=== PATIENT | male | born 1945 | race Hispanic/Latino ===

== ENCOUNTER 2020-09-24 11:50 | Outpatient (CLI) | payer MEDICARE, SELFPAY ==
--- NOTE | ~2020-09-24 | MR_ITS ---
. EXAMINATION: MR lumbar spine wo con DATE: 09/24/2020 12:24 INDICATION: Lumbar radiculopathy. TECHNIQUE: Magnetic resonance imaging (MRI) of the lumbar spine was performed without intravenous con trast. Sequences included sagittal T2-weighted FSE, sagittal T2-weighted FS FSE, sagittal T1-weighted FSE, and axial T2-weighted FSE. COMPARISON: None FINDINGS: There is 9 degrees levocurvature of lumbar spine. There is 3 mm anterolisthesis of L5 on S1 . There is mild chronic anterior wedging of T12 and L1 vertebral bodies. There is mildly decreased di sc height at L1-L2. There is ligamentum flavum hypertrophy at the disc levels from L3-L4 through L5-S 1. The distal spinal cord signal intensity is normal. The conus medullaris is at L1-L2. The following disc levels are specifically discussed: L1-L2: The disc is bulging. There is mild bilateral facet joint osteoarthritis. There is mild bilater al neural foraminal stenosis. There is mild central canal stenosis. L2-L3: The disc is bulging. There is severe right and moderate left facet joint osteoarthritis. There is mild bilateral neural foraminal stenosis. There is mild central canal stenosis. L3-L4: The disc is bulging and has an annular fissure. There is moderate right and severe left facet joint osteoarthritis. There is moderate right and mild left neural foraminal stenosis. There is no ce ntral canal stenosis. L4-L5: The disc is bulging. There is severe bilateral facet joint osteoarthritis. There is moderate b ilateral neural foraminal stenosis. There is mild central canal stenosis. L5-S1: The disc is bulging of annular fissure. There is severe bilateral facet joint osteoarthritis. There is moderate bilateral neural foraminal stenosis. There is mild central canal stenosis. IMPRESSION: 1. Moderate lumbar spondylosis. Reviewed, dictated and finalized at location A. CHEMIST
== END 2020-09-24 11:51 ==
PROVIDERS: Visit Provider Nurse Practitioner Adult Health
DX: M47.26 Other spondylosis with radiculopathy, lumbar region (principal)
CPT/HCPCS: 72148

== ENCOUNTER 2022-02-28 07:34 | Emergency (ER) | payer MEDICARE, SELFPAY ==
[2022-02-28] VITALS (7 sets, daily range): BP systolic 177–195; BP diastolic 81–94; PULSE 66–86; RESP 16; TEMP 36.7; O2SAT 99–100
--- NOTE | ~2022-02-28 | CT_ITS ---
EXAMINATION: CT abdomen pelvis w con DATE: 02/28/2022 09:40 INDICATION: Abdominal pain TECHNIQUE: Computed tomography (CT) of the abdomen and pelvis was performed with 100 mL Omnipaque-300 intravenous contrast. Automated exposure control and iterative reconstruction technique were employe d. The dose-length product was 957.94 mGy-cm. COMPARISON: None FINDINGS: Tiny calcified nodule at the right lung base consistent with old granulomatous disease. Heart size is normal. No pericardial or pleural effusion. Small sliding-type hiatal hernia. Small focus of interme diate attenuation within the fluid filling the intrathoracic portion of the stomach which could repre sent either ingested material, a small polyp or potentially focus of active contrast extravasation. L iver, spleen, pancreas and bilateral kidneys are normal. 7 mm likely calcified gallstone at the neck of the normal decompressed gallbladder. No intra or extra hepatic biliary ductal dilation. 1 cm macro scopic fat attenuation left adrenal myelolipoma. There is a second 1 cm soft tissue density nodule at the right adrenal and statistically most likely to represent an adenoma. Both adrenal nodules appear to been present at the time of a thoracic spine MR dated 12/08/2017. There is mild colonic diverticul osis without adjacent inflammatory change to suggest diverticulitis. Normal appendix. There is fluid scattered throughout multiple loops of nondilated small bowel. Bladder is normal. Prostatomegaly carole uring 5.3 x 4.0 cm. Trace amount of nonspecific ascites in the pelvis. No abscess or free intraperito ruthy gas. No pathologically enlarged abdominal or pelvic lymphadenopathy. There are bridging osteophy román at multiple levels in the lower thoracic spine, consistent with diffuse idiopathic skeletal hyper ostosis (DISH). IMPRESSION: 1. Small sliding-type hiatal hernia with small focus of intermediate attenuation surrounded by fluid within the intrathoracic portion of the stomach which could represent either ingested material, a sma ll polyp or potentially small focus of gastrointestinal bleed with active contrast extravasation. Cor relate clinically and could consider endoscopy for further evaluation. 2. Diverticulosis. 3. Nonspecific fluid-filled but not frankly dilated loops of small bowel without evidence of obstruct ion in this could be related to either an ileus or gastroenteritis. 4. Cholelithiasis. 5. Trace amount of nonspecific ascites in the pelvis. Reviewed, dictated and finalized at location A. IMPRESSION: 1. Small sliding-type hiatal hernia with small focus of intermediate attenuatio n surrounded by fluid within the intrathoracic portion of the stomach which cou ld represent either ingested material, a small polyp or potentially small focus of gastrointestinal bleed with active contrast extravasation. Correlate clinic ally and could consider endoscopy for further evaluation. 2. Diverticulosis. 3. Nonspecific fluid-filled but not frankly dilated loops of small bowel withou t evidence of obstruction in this could be related to either an ileus or gastro enteritis. 4. Cholelithiasis. 5. Trace amount of nonspecific ascites in the pelvis.
[2022-02-28 07:51] LABS: Basophils Absolute Auto 0.1 K/mm3 (0.0-0.1); Basophils Percent Auto 0.4 % (0.2-1.2); Eosinophils Percent Auto 0.1 % (0-4.4); Hematocrit 47.4 % (42.0-52.0); Hemoglobin 15.8 g/dL (14.0-18.0); Immature Granulocyte Absolute 0.03 K/mm3 (0.00-0.031); Immature Granulocyte Percent A 0.2 % (0-0.5); Lymphocytes Absolute Auto 1.66 K/mm3 (0.9-3.2); Lymphocytes Percent Auto 12.3 % (18.3-44.2); Mean Corpuscular HGB Conc 33.3 g/dl (32-36); Mean Corpuscular Volume 89.9 fl (80-100); Mean Platelet Volume 9.4 fl (7.4-10.4); Monocytes Absolute Auto 0.5 K/mm3 (0.1-0.6); Monocytes Percent Auto 3.8 % (2.6-8.5); Neutrophils Absolute Auto 11.2 K/mm3 (1.3-6.7); Neutrophils Percent Auto 83.2 % (45.5-73.1); Platelet Count Result 284 k/mm3 (150-375); Red Blood Count 5.27 M/mm3 (4.6-6.20); Red Cell Distribution Width 15.1 % (11.5-14.5); White Blood Count 13.5 K/mm3 (4.5-10.0)
[2022-02-28 08:00] LABS: Alanine Aminotransferase 25 U/L (6-50); Albumin Level 4.7 g/dL (3.5-5.1); Alkaline Phosphatase 127 U/L (38-126); Anion Gap 11 mmol/L (8-16); Aspartate Amino Transferase 26 U/L (17-59); Bilirubin,Total 0.9 mg/dL (0.2-1.3); Blood Urea Nitrogen 14 mg/dL (9-20); Calcium 9.3 mg/dL (8.4-10.2); Carbon Dioxide 28 mmol/L (22-30); Chloride 102 mmol/L (98-107); Estimated CRCL calculation 53 ml/min; Estimated Glomerular Filt Rate > 60; Glucose 151 mg/dL (65-110); Lipase 86 U/L (23-300); Potassium 4.7 mmol/L (3.4-5.0); Sodium 141 mmol/L (137-145)
--- NOTE | 2022-02-28 08:04 | ED.GENADULT ---
HPI - General Adult General Chief complaint: Nausea/Vomiting/Diarrhea Stated complaint: vomiting, headache Time Seen by Provider: 02/28/22 07:53 Source: RN notes reviewed History of Present Illness HPI narrative: Patient presents emergency department from home for abdominal pain. Patient states symptoms began 2 days ago. The pain is located bilateral lower abdomen does not radiate and is been associated with numerous episodes of nausea and vomiting. Patient has had some episodes of diarrhea as well per the family the patient does report a frontal headache described as aching in nature and he denies any fevers or chills chest pain or shortness of breath denies any coughing. Patient did take Tylenol yesterday with minimal relief Related Data Allergies Allergy/AdvReac Type Severity Reaction Status Date / Time No Known Allergies Allergy Unverified 05/07/15 11:54 Review of Systems Review of Systems: Gen.: Denies fevers or chills ENT: Denies congestion Respiratory: Denies shortness of breath or cough CV: Denies chest pain or palpitations GI: See HPI denies burning, urgency, frequency or hematuria Musculoskeletal: Denies back pain or muscle pain Neuro: Reports frontal headache denies any numbness or tingling Skin: Denies rash Except as documented, all other systems reviewed and negative [facility] Past Medical History Medical History (Updated 02/28/22 @ 14:52 by Jose Solo DO) Hypertension Social History Social History (Updated 02/28/22 @ 08:06 by Jose Solo DO) Smoking status: Never smoker Exam Narrative: APPEARANCE: No acute distress, nontoxic, resting in bed HEENT: Normocephalic, atraumatic, OMM RESPIRATORY: No respiratory distress, clear to auscultation bilaterally with no rhonchi wheezing or rales CARDIOVASCULAR: RRR s murmur ABDOMINAL: Soft nondistend, tender palpation right lower quadrant and left lower quadrant no tenderness right upper quadrant left upper quadrant no rebound or guarding MUSCULOSKELETAl: Moves all extremities. No clubbing, cyanosis or edema. NEURO: Awake and alert. Following commands, speech normal, no focal deficits SKIN:: Warm, dry. Normal Color PSYCHIATRIC: Normal affect/mood Course Course Emergency Course: Following the CT read I discussed with Dr. Corley. At this time recommends NG placed with lavage if negative may be pulled and patient may be discharged NG placed clear liquid return no signs of bleeding Patient states he feeling much better able to drink in ED with no emesis Discussed with patient results of workup and diagnosis. Discussed need for follow-up with primary care, proper use of medication, and reasons to return to the emergency department. Patient understands and agrees to current treatment plan Vital Signs Vital signs: Vital Signs Temperature 98.1 F 02/28/22 07:39 Pulse Rate 86 02/28/22 07:39 Respiratory Rate 16 02/28/22 07:39 Blood Pressure 181/89 H 02/28/22 07:39 Pulse Oximetry 100 02/28/22 07:39 Oxygen Delivery Room Air 02/28/22 07:39 Temperature 98.1 F 02/28/22 07:39 Pulse Rate 80 02/28/22 14:01 Respiratory Rate 16 02/28/22 14:01 Blood Pressure 195/94 H 02/28/22 14:01 Pulse Oximetry 100 02/28/22 14:01 Oxygen Delivery Room Air 02/28/22 07:39 Medical Decision Making Vital Signs Vital Signs: Vital Signs Temperature 98.1 F 02/28/22 07:39 Pulse Rate 86 02/28/22 07:39 Respiratory Rate 16 02/28/22 07:39 Blood Pressure 181/89 H 02/28/22 07:39 Pulse Oximetry 100 02/28/22 07:39 Oxygen Delivery Room Air 02/28/22 07:39 Temperature 98.1 F 02/28/22 07:39 Pulse Rate 80 02/28/22 14:01 Respiratory Rate 16 02/28/22 14:01 Blood Pressure 195/94 H 02/28/22 14:01 Pulse Oximetry 100 02/28/22 14:01 Oxygen Delivery Room Air 02/28/22 07:39 Lab Data Result diagrams: 02/28/22 07:45 02/28/22 07:45 Labs: Lab Results 02/28/22
[2022-02-28] MEDS: ONDANSETRON INJ 4 MG/2 ML VIAL IV PUSH (08:16)
[2022-02-28] MEDS: SODIUM CHLORIDE 0.9% IV 1,000 ML 999 ML IV CONT (08:16)
[2022-02-28 08:44] LABS: SARS-CoV-2 RNA PCR Positive
[2022-02-28 10:48] LABS: Appearance Urine Clear (Clear); Bilirubin Urine Negative (Negative); Glucose Urine UA Negative (Negative); Ketones Urine Negative (Negative); Leukocyte Esterase Ur Negative LEU/UL (Negative); Nitrate Urine Negative (Negative); Protein Urine Negative (Negative); Specific Grav Ur <= 1.005 (1.001-1.035); Urobilinogen Urine 0.2 mg/dL (<2.0)
[2022-02-28 10:52] LABS: Add Urine Microscopic? YES; Blood Urine Trace-Intact (Negative); Color Urine Light Yellow (Yellow)
[2022-02-28 11:00] LABS: Mucus Urine Rare /lpf; RBC Urine 0-2 /hpf (0-2)
== END 2022-02-28 16:15 | disposition home or self-care (01) ==
PROVIDERS: Emergency Provider Emergency Medicine; PCP Family Medicine
DX: U07.1 COVID-19 (principal); R11.2 Nausea with vomiting, unspecified; I10 Essential (primary) hypertension; K80.20 Calculus of gallbladder without cholecystitis without obstruction; K57.90 Diverticulosis of intestine, part unspecified, without perforation or abscess without bleeding; R93.3 Abnormal findings on diagnostic imaging of other parts of digestive tract; K44.9 Diaphragmatic hernia without obstruction or gangrene
CPT/HCPCS: 36415; 74177; 80053; 81001; 83690; 85025; 96365; 96375; 99284; C9803; J0131; J2405; J7030; Q9967; U0003; U0005

== ENCOUNTER 2024-02-09 21:09 | Emergency (ER) | payer MEDICARE, SELFPAY ==
--- NOTE | ~2024-02-09 | CT_ITS ---
EXAMINATION: CT abdomen pelvis w con DATE: 02/09/2024 23:17 INDICATION: Abdominal pain. TECHNIQUE: Computed tomography (CT) of the abdomen and pelvis was performed with 100 mL Omnipaque 350 intravenous contrast. Automated exposure control and iterative reconstruction technique were employe d. The dose-length product was 934.32 mGy-cm. COMPARISON: CT abdomen and pelvis 02/28/2022 FINDINGS: The visualized portions of lung bases demonstrate mild atelectasis. No pleural effusion. Th e heart size is normal. No pericardial effusion. There is a small sliding hiatal hernia. The liver an d spleen are normal. There is a gallstone in the gallbladder, which is normal in size. The pancreas a nd right adrenal gland are normal. There is an 8 mm mass of fat in left adrenal gland, consistent wit h a myelolipoma. There is cortical thinning of the kidneys. The prostate is moderately enlarged. Ther e is diverticulosis of the colon without evidence of diverticulitis. There are no dilated loops of luz elena wel. The appendix is normal. There are no pathologically enlarged lymph nodes. There is no free intra peritoneal fluid. There is moderate lumbar spondylosis. There are bridging endplate osteophytes at mu ltiple levels in the thoracic spine, consistent with diffuse idiopathic skeletal hyperostosis (DISH). There is mild chronic anterior wedging of T12, L1, and L2 vertebral bodies. IMPRESSION: 1. Small sliding hiatal hernia. Reviewed, dictated and finalized at location E.
--- NOTE | ~2024-02-09 | XR_ITS ---
EXAMINATION: XR chest 2V DATE: 02/09/2024 21:44 INDICATION: Dizziness. Weakness. TECHNIQUE: Frontal and lateral views of the chest were obtained. COMPARISON: CT abdomen and pelvis 02/28/2022 FINDINGS: There is no pneumonia, pleural effusion, or pneumothorax. The heart size is normal. There a re prominent pericardial fat pads. IMPRESSION: 1. No acute cardiopulmonary disease. Reviewed, dictated and finalized at location E.
--- NOTE | ~2024-02-09 | CT_ITS ---
EXAMINATION: CT brain wo con DATE: 02/09/2024 23:17 INDICATION: Dizziness. TECHNIQUE: Computed tomography (CT) of the head was performed without intravenous contrast. The mA wa s adjusted according to patient size. Iterative reconstruction technique was employed. The dose-lengt h product was 605.33 mGy-cm. COMPARISON: None FINDINGS: There is no intracranial hemorrhage, acute infarction, or abnormal intracranial mass lesion . There are scattered areas of low attenuation in the cerebral white matter, which is within normal l imits for the patient's age. The ventricles are normal in size. There are old fractures of right zygo maticomaxillary complex. There are likely changes of ocular lens replacement surgeries. The mastoid a ir cells are normal. IMPRESSION: 1. Normal aging brain. Reviewed, dictated and finalized at location E. IMPRESSION: 1. Normal aging brain.
[2024-02-09 21:10] VITALS: BP 150/82; PULSE 94; RESP 16; TEMP 36.3; O2SAT 97
--- NOTE | 2024-02-09 21:19 | ECG_ITS ---
Test Date: 2024-02-09 21:24:21 Measurements Intervals [place] Rate: 81 P: 18 [place]: 185 QRS: -38 QRSD: 93 T: 42 QT: 391 QTc: 457 Interpretive Statements SINUS RHYTHM LEFT AXIS DEVIATION INCOMPLETE RIGHT BUNDLE BRANCH BLOCK PATTERN CONSISTENT WITH PULMONARY DISEASE BASELINE ARTIFACT- I, II, AVR BORDERLINE ECG No previous ECG available for comparison Electronically Signed On 02-10-2024 06:43:35 CDT by Ed Hall D.O.
[2024-02-09 21:39] LABS: Basophils Percent Auto 0.4 % (0.2-1.2); Eosinophils Absolute Auto 0.2 K/mm3 (0-0.3); Eosinophils Percent Auto 2.1 % (0-4.4); Hematocrit 42.4 % (42.0-52.0); Hemoglobin 14.6 g/dL (14.0-18.0); Immature Granulocyte Absolute 0.04 K/mm3 (0.00-0.031); Immature Granulocyte Percent A 0.4 % (0-0.5); Lymphocytes Absolute Auto 1.82 K/mm3 (0.9-3.2); Lymphocytes Percent Auto 18.1 % (18.3-44.2); Mean Corpuscular HGB Conc 34.4 g/dl (32-36); Mean Corpuscular Volume 87.2 fl (80-100); Mean Platelet Volume 9.1 fl (7.4-10.4); Monocytes Absolute Auto 0.8 K/mm3 (0.1-0.6); Monocytes Percent Auto 7.6 % (2.6-8.5); Neutrophils Absolute Auto 7.2 K/mm3 (1.3-6.7); Neutrophils Percent Auto 71.4 % (45.5-73.1); Platelet Count Result 266 k/mm3 (150-375); Red Blood Count 4.86 M/mm3 (4.6-6.20); Red Cell Distribution Width 14.6 % (11.5-14.5); White Blood Count 10.1 K/mm3 (4.5-10.0)
[2024-02-09 21:58] LABS: Alanine Aminotransferase 16 U/L (6-50); Albumin Level 4.5 g/dL (3.5-5.1); Alkaline Phosphatase 108 U/L (38-126); Anion Gap 10 mmol/L (4-12); Aspartate Amino Transferase 23 U/L (17-59); Bilirubin,Total 1.1 mg/dL (0.2-1.3); Blood Urea Nitrogen 19 mg/dL (9-20); Calcium 8.8 mg/dL (8.4-10.2); Carbon Dioxide 30 mmol/L (22-30); Chloride 94 mmol/L (98-107); Estimated CRCL calculation 45 ml/min; Estimated Glomerular Filt Rate 58; Glucose 112 mg/dL (65-110); Potassium 3.6 mmol/L (3.4-5.0); Sodium 134 mmol/L (137-145)
[2024-02-09] MEDS: SODIUM CHLORIDE 0.9% IV 500 ML 999 ML IV CONT (22:57)
[2024-02-09] MEDS: MECLIZINE HCL 25 MG TABLET PO (22:58)
[2024-02-09] MEDS: ONDANSETRON INJ 4 MG/2 ML VIAL IV PUSH (22:58)
[2024-02-09 23:11] LABS: Add Urine Microscopic? YES; Appearance Urine Cloudy (Clear); Bacteria Urine None Seen /hpf; Bilirubin Urine Negative (Negative); Blood Urine Negative (Negative); Color Urine Yellow (Yellow); Glucose Urine UA Negative (Negative); Ketones Urine Trace mg/dL (Negative); Leukocyte Esterase Ur Negative LEU/UL (Negative); Need Manual Microscopic Reviewed; Nitrate Urine Negative (Negative); Non Pathogenic Casts 0-2; Protein Urine Negative (Negative); RBC Urine 0-2 /hpf (0-2); Specific Grav Ur 1.009 (1.001-1.035); Squamous Epithelial Cell Urine None Seen /hpf (Few); Urobilinogen Urine 0.2 mg/dL (<2.0); WBC Urine 0-5 /hpf (0-3); pH Urine 5.5 (5.0-9.0)
--- NOTE | 2024-02-09 23:13 | ED.GENADULT ---
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 Ongoing since yesterday. Reports some nausea and vomiting. Also reports dizziness that is worse upon standing. Denies fevers, dysuria, hematuria, or diarrhea. Related Data Home Medications Medication Instructions Recorded Confirmed allopurinol 300 mg tablet 300 mg PO BID 03/25/22 03/25/22 lisinopril 20 mg tablet 20 mg PO DAILY 03/25/22 03/25/22 Allergies Allergy/AdvReac Type Severity Reaction Status Date / Time No Known Allergies Allergy Verified 02/09/24 21:14 Review of Systems Review of Systems: CONSTITUTIONAL: Denies fever CARDIOVASCULAR: Denies chest pain RESPIRATORY: Denies dyspnea. GASTROINTESTINAL: Reports abdominal pain, nausea, vomiting. Denies diarrhea. GENITOURINARY: Denies dysuria or hematuria. All systems reviewed & are unremarkable except as noted in HPI and below PMFSH Past Medical History Medical History (Updated 02/10/24 @ 01:22 by Melvina Mendoza PA-C) Abnormal CT scan, stomach Hypertension Urinary frequency Social History Social History (Updated 03/25/22 @ 12:57 by Rachana Herrera CMA) Smoking status: Never smoker Alcohol intake: never Substance use: never Exam Narrative: GENERAL: Well-appearing, well-nourished, and in no acute distress. HEAD: Normocephalic, atraumatic. EYES: PERRLA and EOMI. ENT: Nares clear, no rhinorrhea or epistaxis. Mucous membranes moist. Oropharynx without tonsillar hypertrophy exudate or other lesions. Bilateral TMs pearly guzman non-bulging NECK: Supple. No adenopathy or masses. No JVD CHEST: Clear to auscultation. No respiratory distress. No wheezes rales or rhonchi HEART: Regular rate and rhythm. No murmur heard. Normal peripheral pulses. ABDOMEN: Soft, nondistended, normal active bowel sounds. Mild tenderness to palpation throughout the lower abdomen, without guarding EXTREMITIES: Normal range of motion. No edema. SKIN: Warm, dry, no rash. NEURO: No focal deficits. Alert and oriented x3. Cranial nerves 2-12 grossly intact PSYCH: Normal mood and affect Course Course Emergency Course: Patient and family updated on workup. Reports feeling much better Vital Signs Vital signs: Vital Signs Temperature 97.4 F L 02/09/24 21:10 Pulse Rate 94 02/09/24 21:10 Respiratory Rate 16 02/09/24 21:10 Blood Pressure 150/82 H 02/09/24 21:10 Pulse Oximetry 97 02/09/24 21:10 Temperature 97.4 F L 02/09/24 21:10 Pulse Rate 94 02/09/24 21:10 Respiratory Rate 16 02/09/24 21:10 Blood Pressure 150/82 H 02/09/24 21:10 Pulse Oximetry 97 02/09/24 21:10 Medical Decision Making MDM Narrative Medical decision making narrative: Patient presents to the ER for intermittent dizziness ongoing since yesterday. Also reporting some lower abdominal discomfort. Patient is afebrile and nontoxic appearing. He is neurologically intact. Vitals are stable. EKG shows normal sinus rhythm. CBC without leukocytosis. Hemoglobin is normal. Metabolic panel and urine with evidence of mild dehydration. No evidence of UTI. Chest x-ray without acute cardiopulmonary abnormality. CT abdomen/pelvis without acute findings. CT brain shows a normal aging brain. Patient and family updated on workup. Reports feeling much better. Instructed to have close follow up with his PCP. He was given warnings to return to the ER Differential Diagnosis Differential Diagnosis: dehydration, UTI, kidney stone, appendicitis, diverticulitis, GERD, vertigo Vital Signs Vital Signs: Vital Signs Temperature 97.4 F L 02/09/24 21:10 Pulse Rate 94 02/09/24 21:10 Respiratory Rate 16 02/09/24 21
[2024-02-09 23:35] LABS: Lipase 48 U/L (23-300)
[2024-02-10 01:29] VITALS: BP 175/84; PULSE 88; RESP 19; O2SAT 97
== END 2024-02-10 01:33 | disposition home or self-care (01) ==
PROVIDERS: Emergency Medicine; Emergency Provider Physician Assistant
DX: R10.30 Lower abdominal pain, unspecified (principal); R42 Dizziness and giddiness; E86.0 Dehydration; I10 Essential (primary) hypertension; K44.9 Diaphragmatic hernia without obstruction or gangrene; I45.10 Unspecified right bundle-branch block; R94.31 Abnormal electrocardiogram [ECG] [EKG]
CPT/HCPCS: 36415; 70450; 71046; 74177; 80053; 81001; 83690; 85025; 93005; 96361; 96374; 99284; A9270; J2405; J7040; Q9967

== ENCOUNTER 2024-12-16 18:36 | Emergency (ER) | payer MEDICARE, SELFPAY ==
[2024-12-16 18:45] VITALS: BP 147/63; PULSE 80; RESP 20; TEMP 36.4; O2SAT 97
--- NOTE | 2024-12-16 19:06 | ED_ITS ---
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 reports that patient has had headache before he came also that was helped by Tylenol. reports that patient has had a decreased appetite today and has not ate anything today with blood sugar noted to be 148. states that patient is thirsty all the time denies any known history of diabetes. Patient denies any pain to his abdomen or any back pain, states that patient drinks water and coca cola but has not drank much yesterday or today. She reports that he did say that he had some pain with urination yesterday but none today., reports no fevers MD complaint: urgency and incontinency of urine with some pain with urination yesterday, Onset (ago): day(s) (since yesterday) Treatments prior to arrival: other (Tylenol) Related Data Home Medications Medication Instructions Recorded Confirmed Last Taken Type lisinopril 20 mg tablet 20 mg PO DAILY 03/25/22 12/16/24 Unknown History allopurinol 300 mg tablet 300 mg PO Q12H 12/16/24 12/16/24 Unknown History Allergies Allergy/AdvReac Type Severity Reaction Status Date / Time No Known Allergies Allergy Verified 12/16/24 18:41 Review of Systems Review of Systems: CONSTITUTIONAL: Denies fever, chills, or sweats. EYES: Denies visual changes, redness, or discharge. ENT: Denies rhinorrhea, congestion, sore throat, or otalgia. CARDIOVASCULAR: Denies chest pain, palpitations, or edema. RESPIRATORY: Denies cough or dyspnea. GASTROINTESTINAL: Denies abdominal pain, nausea, vomiting, or diarrhea.reports constipation GENITOURINARY: reports dysuria yesterday but not today continues to have urgency frequency and is incontinent SKIN: Denies rash or itching. MUSCULOSKELETAL: Denies back pain, joint pain, or myalgia. NEUROLOGIC: positive for episode of headache which was relieved with Tylenol, reports no numbness, or weakness. PSYCHIATRIC: Denies anxiety or depression. All systems reviewed & are unremarkable except as noted in HPI and below PMFSH Past Medical History Medical History (Updated 12/17/24 @ 14:40 by Juana Adamson NP) Urinary tract infection Gout Urinary frequency Abnormal CT scan, stomach Hypertension Social History Social History (Updated 12/17/24 @ 14:33 by Juana Adamson NP) Smoking status: Never smoker Alcohol intake: former Alcohol use details: beer Substance use: never Living arrangements: with family Occupation/Education: retired Gender identity (if verbalized by the patient): Male Comments At time of signature, agree with nursing past medical, surgical, social and family history. There is no relevant family history pertinent to the presenting complaint Exam Narrative: GENERAL: Well-appearing, well-nourished, and in no acute distress, . HEAD: Normocephalic, atraumatic. EYES: PERRLA and EOMI. ENT: Nares clear, no rhinorrhea or epistaxis. Mucous membranes moist.TM's normal throat pink with no swelling NECK: Supple. no lymphadenopathy CHEST: Clear to auscultation. No respiratory distress.no cough noted SAO2 97% on room air HEART: Regular rate and rhythm. No murmur heard. Normal peripheral pulses. ABDOMEN: Soft, nontender, nondistended, normal active bowel sounds.reports no McBurney point tenderness or any tenderness on palpation, bowel sounds normal in all quadrants. EXTREMITIES: Normal range of motion. No edema. SKIN: Warm, dry, no rash. NEURO: No focal deficits. Alert and oriented x3. Course Course Emergency Course: Patient is aware of diagnosis, understands and agrees to treatment plan. Anticipatory guidance given. Patient agrees to follow-up as directed and is aware of reasons to seek care at the emergency department. Portions of this record may have been created with voice recognition software Level of Care: Express Care Visit Vital Signs Vital signs: Vital Signs Temperature 36.4 C 12/16/24 18:45 Pulse Rate 80 12/16/24 18:45 Respiratory Rate 20 12/16/24 18:45 Blood Pressure 147/63 H 12/16/24 18:45 Pulse Oximetry 97 12/16/24 18:45 Temperature 36.4 C 12/16/24 18:45 Pulse Rate 80 12/16/24 18:45 Respiratory Rate 20 12/16/24 18:45 Blood Pressure 147/63 H 12/16/24 18:45 Pulse Oximetry 97 12/16/24 18:45 Reviewed Medical Decision Making MDM Narrative Medical decision making narrative: Exam findings and imaging show no acute concerns or changes; patient is non- toxic appearing and is in no distress. Patient is appropriate for outpatient treatment and follow-up states they have no way to get antibiotic tonight requesting antibiotic medication given here prior to discharge and they will get medication tomorrow. Rocephin 500 mg Im mixed with Lidocaine given at 1941 by nursing staff with no signs of reaction. Differential Diagnosis Differential Diagnosis: UTI, constipation,dehydration, Medical Records Medical records reviewed: Yes I reviewed the external patient's medical records. Vital Signs Vital Signs: Vital Signs Temperature 36.4 C 12/16/24 18:45 Pulse Rate 80 12/16/24 18:45 Respiratory Rate 20 12/16/24 18:45 Blood Pressure 147/63 H 12/16/24 18:45 Pulse Oximetry 97 12/16/24 18:45 Temperature 36.4 C 12/16/24 18:45 Pulse Rate 80 12/16/24 18:45 Respiratory Rate 20 12/16/24 18:45 Blood Pressure 147/63 H 12/16/24 18:45 Pulse Oximetry 97 12/16/24 18:45 Lab Data Lab results reviewed: Yes I reviewed the patient's lab results. Lab results narrative: urine dip: dark yellow cloudy, glucose negative, bilirubin negative, ketone negative, specific gravity 1.025, blood 2+, pH 6.0 protein 3+ urobilinogen 1.0 nitrate negative leukocyte 1+ urine culture sent Glucose per fingerstick 148 Labs: Lab Results 12/16/24 12/16/24 Range/Units 19:03 19:05 POC Capillary Glucose 148 H (65-105) mg/dl POC Urine Color Dark POC Urine Clarity Cloudy POC Urine pH 6.0 POC Ur Specif [place] 1.025 POC Urine Protein 3+ (Negative) POC Ur Glucose (UA) Negative (Negative) POC Urine Ketones Negative (Negative) POC Urine Blood 2+ (Negative) POC Urine Nitrite Negative (Negative) POC Urine Bilirubin Negative (Negative) POC Urine Urobilinogen 1.0 POC U Leukocyte Esteras 1+ (Negative) reviewed Critical Care Time Critical Care Time Critical Care Time: No Discharge Plan Discharge Clinical Impression: Urinary tract infection Qualifiers: Urinary tract infection type: site unspecified Hematuria presence: with hematuria Qualified Code(s): N39.0 - Urinary tract infection, site not specified ; R31.9 - Hematuria, unspecified Constipation Qualifiers: Constipation type: unspecified constipation type Qualified Code(s): K59.00 - Constipation, unspecified Patient Disposition: Home Condition: Stable Instructions: Antibiotic Form, Constipation (ED), Urinary Tract Infection in Me n (ED) Additional Instructions: Increase fluids especially cranberry juice and water Avoid caffeine and carbonated beverages Antibiotic as directed : family states they can't clam picker till tomorrow Tylenol/ibuprofen for pain or fever Follow-up with his primary care provider if further problems or concerns Recheck if you have fever over 101, nausea and vomiting. take Miralax daily till have BM can use then as needed If your symptoms persist, change or worsen significantly before you can contact your personal physician then please, without delay, go to the emergency department for further evaluation. Follow-up with PCP in 7-10 days or sooner if needed Follow up with PCP soon in regards to your blood pressure which is elevated above threshold for referral. Blood pressure above 120/80 may indicate pre- hypertension. 147/63 Patient needs to get established with his new doctor and make follow-up appointment for next week Patient Language: [place] Prescriptions: New ciprofloxacin HCl [Cipro] 250 mg tablet 250 mg PO Q12H Qty: 20 0RF No Action allopurinol 300 mg tablet 300 mg PO Q12H lisinopril 20 mg tablet 20 mg PO DAILY Follow-up/Referrals: PHYSICIAN,HAY BALER [Primary Care Provider] - Time of Disposition: 19:56 Quality Jessica Coma Scale Eyes: Open Verbal: Oriented and Alert Motor: Follows Commands [place] Coma Total Score: 15
[2024-12-16 19:10] LABS: Glucose Point of Care 148 mg/dl (65-105)
[2024-12-16 19:36] LABS: EDUAAPPEAR Cloudy; EDUABILI Negative (Negative); EDUABLOOD 2+ (Negative); EDUACOLOR1 Dark; EDUAGLUCOSE Negative (Negative); EDUAKETONE Negative (Negative); EDUALEUKO 1+ (Negative); EDUANITRATE Negative (Negative); EDUAPROTEIN 3+ (Negative); EDUASPGRAVITY 1.025
[2024-12-16] MEDS: cefTRIAXone 500 MG, LIDOCAINE 1% LOCAL INJ 1 ML IM (19:41)
== END 2024-12-16 20:00 | disposition home or self-care (01) ==
PROVIDERS: Emergency Provider Registered Nurse
DX: N39.0 Urinary tract infection, site not specified (principal); R31.9 Hematuria, unspecified; K59.00 Constipation, unspecified; I10 Essential (primary) hypertension; M10.9 Gout, unspecified
CPT/HCPCS: 81003; 82948; 87086; 96372; 99213; G0463; J0696; J2003